=== PATIENT | female | born 1985 | race African-American/Black ===

== ENCOUNTER 2016-11-16 13:22 | Emergency (ER) | payer MEDICAID ==
[~2016-11-16 13:22] MED LIST: BACT800T5 PO; CEPH-460 PO
[2016-11-16 13:24] VITALS: BP 135/68; PULSE 98; RESP 20; TEMP 98.9; O2SAT 99
--- NOTE | 2016-11-16 14:00 | PD ---
Physical Exam Time Seen by Provider: 13:59 Narrative 31 y/o female here with pain in the sacral region for 2 weeks, worse when sitting. Vital signs reviewed. Seen at triage desk. Awaiting bed placement. Data Data Last Documented VS Vital Signs Date Time Temp Pulse Resp B/P Pulse Ox O2 Delivery O2 Flow Rate FiO2 11/16/16 13:24 98.9 98 20 135/68 99 Room Air MDM Medical Record Reviewed: Yes Supervised Visit with TIFFANIE: Juan Romero Nov 16, 2016 14:00
--- NOTE | 2016-11-16 14:59 | PD ---
HPI . facial pressure, headache, sometimes dizzy and sacral pain x 1 week Chief Complaint: Pain: Acute or Chronic Time Seen by Provider: 14:59 Travel History International Travel<30 days: No Contact w/Intl Traveler<30days: No Traveled to known affect area: No History of Present Illness HPI 31-year-old female here with complaints of facial pressure, headache and dizziness for about a week. Patient says that she does have some facial pressure, but was concerned because she was getting dizziness at times. She denies any fever or chills. Additionally she reports that she has some pain in her sacrum. She denies any recent falls or injuries. She is ambulatory. She denies any bowel or bladder dysfunction. She has no saddle anesthesia. PFSH Past Medical History Hx Anticoagulant Therapy: No Cardiovascular Problems: No Chemotherapy: No Cerebrovascular Accident: No Diabetes: No (GESTATIONAL) Diminished Hearing: No Hypertension: Yes Respiratory: No Immunizations Current: Yes ?: Not LMP: 11/10/16 : 3 Para: 3 Tubal Ligation: Yes Past Surgical History Gynecologic Surgery: Yes (tubal ligation) Hysterectomy: No Social History Alcohol Use: No Tobacco Use: No Substance Use: No Allergies-Medications (Allergen,Severity, Reaction): Coded Allergies: Penicillin (Verified Adverse Reaction, Intermediate, rash, 03/06/16) Reported Meds & Prescriptions Reported Meds & Active Scripts Active Zithromax Z-Rc (Azithromycin) 250 Mg Dspk 250 Mg PO DIRECTED 500 MG (2 tabs) day 1, then 1 tab days 2-5. Keflex (Cephalexin) 500 Mg Cap 500 Mg PO Q6H Bactrim DS (Sulfamethoxazole-Trimethoprim) 800-160 Mg Tab 1 Tab PO BID Review of Systems General / Constitutional: No: Fever Eyes: No: Visual changes HENT: Positive: Headaches, Lightheadedness, Congestion Cardiovascular: No: Chest Pain or Discomfort Respiratory: No: Shortness of Breath Gastrointestinal: No: Abdominal Pain Genitourinary: No: Dysuria Musculoskeletal: Positive: Pain (pain in sacrum) Skin: No Rash Neurologic: No: Weakness Psychiatric: No: Depression Endocrine: No: Polydipsia Hematologic/Lymphatic: No: Easy Bruising Physical Exam Narrative GENERAL: AAO x 3, no acute distress, Well-nourished, well-developed patient. SKIN: Warm and dry. No visible rashes or bruising. no skin abn to sacral area HEAD: Normocephalic and atraumatic. EYES: No scleral icterus. No injection or drainage. ENT: No nasal drainage noted. Mucous membranes pink. Airway patent. Frontal and maxillary sinus tenderness. Bilateral clear effusions. Oropharynx without any abnormality. NECK: Supple, trachea midline. No JVD. No lymphadenopathy. CARDIOVASCULAR: Regular rate and rhythm without murmurs, gallops, or rubs. RESPIRATORY: Breath sounds equal bilaterally. No accessory muscle use. No rhonchi or rales. GASTROINTESTINAL: Visual inspection normal EXTREMITIES: No cyanosis or edema. BACK: Pain with palpation to the gluteal cleft without any abnormalities, ambulatory NEURO: CN II-12 intact, Data Data Last Documented VS Vital Signs Date Time Temp Pulse Resp B/P Pulse Ox O2 Delivery O2 Flow Rate FiO2 11/16/16 15:15 95 16 128/71 99 11/16/16 13:24 98.9 Room Air MDM Medical Decision Making Medical Screen Exam Complete: Yes Emergency Medical Condition: Yes Medical Record Reviewed: Yes Differential Diagnosis sinusitis, OM, OE, sinus headache, sacral pain, muscle strain Narrative Course 31 yr old female here with what appears to be sinusitis. It explains her symptoms. She has findings on exam consistent with sinusitis. I advised antibiotics for treatment In regards to her sacral pain, not sure of the exact cause. I do not recommend x-ray imaging. Patient is ambulatory. I recommend she try ibuprofen and if her pain persists, follow-up with her primary care provider. Patient verbalized understanding of instructions, questions were answered, and thanked me for their care. I advised them if their condition worsens, please return to the nearest emergency room for further care. Diagnosis Primary Impression: Acute sinusitis Additional Impression: Sacral pain Patient Instructions: General Instructions Additional Instructions: Take [id number] ibuprofen for the pain in your sacrum. Take the medications are provided for your sinus infection. Please return to emergency department if your symptoms return or worsen. Follow up with your primary care provider. Take medications as prescribed. Med/Other Pt SpecificInfo: Prescription(s) given Scripts Azithromycin (Zithromax Z-Rc)250 Mg [id number] Mg PO DIRECTED #1 DSPK 500 MG (2 tabs) day 1, then 1 tab days 2-5. Prov:Tierra Domingo MD 11/16/16 Disposition: 01 DISCHARGE HOME Condition: Stable Emily Mccauley Nov 16, 2016 14:59
[2016-11-16] MEDS ORDERED: ZITHTAB PO (15:06)
[2016-11-16 15:15] VITALS: BP 128/71
== END 2016-11-16 15:24 | disposition home or self-care (01) ==
LOC: NEPK 13:22
DX: J01.90 Acute sinusitis, unspecified (principal); M54.5 Low back pain
CPT/HCPCS: 99283